=== PATIENT | female | born 1985 | race Caucasian/White ===

== ENCOUNTER 2017-11-08 20:28 | Emergency (ER) | payer BC ==
[~2017-11-08] VITALS: Ht 154.9 cm; Wt 40.8 kg
[~2017-11-08 20:28] MED LIST: ESOM40CA PO; FLUO40CA8 PO
--- NOTE | 2017-11-08 20:43 | NUR ---
PATIENT WALKED IIN FROM HOME, WAS BITTEN ON LEFT BY OWN DOGS 3.5 HOURS AGO. PATIENT STATES DOG'S ARE UP TO DATE WITH SHOTS.
--- NOTE | 2017-11-08 20:44 | NUR ---
PATIENT DOES NOT REMEMBER LAST TETANUS VACCINE.
--- NOTE | 2017-11-08 20:49 | NUR ---
DR. MCKENZIE AT BEDSIDE FOR MSE.
[2017-11-08] MEDS ORDERED: AMOXICILLIN-CLAVUL 875-125MG TABLET PO ONE (21:00)
[2017-11-08] MEDS ORDERED: TDAP DIPH,PERTUSS,TET VAC/PF 0.5 ML DISP.SYRIN IM ONE ×2 (21:00→21:20)
[2017-11-08] MEDS ORDERED: HYDROCODONE/APAP 5-325MG TABLET PO ONE (21:00)
[2017-11-08] MEDS ORDERED: AMOXICILLIN-CLAVUL 875-125MG TABLET ONE (21:19)
[2017-11-08] MEDS ORDERED: HYDROCODONE/APAP 5-325MG TABLET ONE (21:19)
[2017-11-08] MEDS ORDERED: NEOMY/BACITRA/POLYMYXIN B OINT UD PACKET TP ONE ×2 (21:30→21:46)
[2017-11-08] MEDS ORDERED: LIDOCAINE HCL 1% 20 ML VIAL IJ ONE (22:00)
[2017-11-08 22:42] VITALS: BP 97/75
--- NOTE | 2017-11-08 22:42 | NUR ---
Patient discharged to home in stable conditon. Written and verbal after care instructions given. Patient verbalizes understanding of instructions.
== END 2017-11-08 22:42 | disposition home or self-care (01) ==
LOC: ER 20:28
DX: S81.852A Open bite, left lower leg, initial encounter (principal); W54.0XXA Bitten by dog, initial encounter; Y93.89 Activity, other specified; Y92.89 Other specified places as the place of occurrence of the external cause; Y99.8 Other external cause status
CPT/HCPCS: 73590; 90715; A4217; A4663; J3490

== ENCOUNTER 2017-11-10 09:37 | Emergency (ER) | payer BC ==
[~2017-11-10] VITALS: Ht 154.9 cm; Wt 42.6 kg
--- NOTE | 2017-11-10 10:14 | NUR ---
Patient discharged to home in stable conditon. Written and verbal after care instructions given. Patient verbalizes understanding of instructions. Pt left er accompained by family using own crutches.
[2017-11-10 10:15] VITALS: BP 102/66
== END 2017-11-10 10:16 | disposition home or self-care (01) ==
LOC: ER 09:37
DX: Z48.00 Encounter for change or removal of nonsurgical wound dressing (principal)
CPT/HCPCS: A4663